=== PATIENT | female | born 1990 | race Caucasian/White ===

== ENCOUNTER 2016-05-01 14:53 | Observation (INO) ==
[2016-05-01] MEDS ORDERED: Naloxone 0.4 MG/ML INJ IVP PRN (16:59)
[2016-05-01] MEDS ORDERED: Ondansetron 4 MG/2 ML VIAL IVP PRN (16:59)
[2016-05-01] MEDS: Vancomycin 1,250 MG in D5% in Water 250 ML IVPB SCH (17:45)
[2016-05-01] MEDS: Ringers Solution, Lactated 1,000 ML IVC SCH (17:45)
[2016-05-01] MEDS: Ibuprofen 600 MG TABLET PO PRN (17:46)
[2016-05-01] MEDS ORDERED: Vancomycin 1,250 MG in D5% in Water 250 ML IVPB SCH (18:00)
[2016-05-01 19:21] LABS: BUN/Creatinine Ratio 17 (6-26); Blood Urea Nitrogen 17 mg/dL (7-20); Calcium 8.9 mg/dL (8.6-10.8); Carbon Dioxide 22 mEq/L (19-29); Chloride 101 mEq/L (98-109); Glucose 111 mg/dL (70-99); Osmolality,Calculated 284 (280-300); Potassium 3.1 mEq/L (3.5-4.5); Sodium 136 mEq/L (136-145); eGFR For African Americans > 60 (> 60); eGFR For Non-African Americans > 60 (> 60)
[2016-05-01] MEDS: Piperacillin/Tazobactam 3.375 GM in D5% in Water (Mini-Bag+) 100 ML IVPB SCH (20:08)
[2016-05-02] MEDS: Ringers Solution, Lactated 1,000 ML IVC SCH ×2 (03:12→22:55)
[2016-05-02] MEDS: Piperacillin/Tazobactam 3.375 GM in D5% in Water (Mini-Bag+) 100 ML IVPB SCH ×3 (03:23→20:06)
[2016-05-02 04:14] LABS: Basophils % 0.2 %; Eosinophils # 0.1 K/mcL (0.0-0.6); Eosinophils % 0.3 %; Hematocrit 31.7 % (35.3-44.9); Hemoglobin 10.3 g/dL (11.5-15.4); Immature Granulocytes % 1.6 % (0-4); Lymphocytes # 1.8 K/mcL (0.6-4.6); Lymphocytes % 8.8 %; Mean Corpuscular HGB Conc 32.5 g/dL (31.6-35.5); Mean Corpuscular Hemoglobin 29.7 pg (28.0-33.3); Mean Corpuscular Volume 91.4 fL (83.0-100.0); Mean Platelet Volume 10.5 fL (9.4-12.4); Monocytes # 1.8 K/mcL (0.0-1.3); Monocytes % 9.2 %; Neutrophils # 15.9 K/mcL (1.6-8.9); Platelet Count 268 K/mcL (140-400); Red Blood Count 3.47 M/mcL (3.82-4.97); Red Cell Distribution Width 13.5 % (11.5-14.5); Segmented Neutrophils % 79.9 %
[2016-05-02] MEDS: Vancomycin 1,250 MG in D5% in Water 250 ML IVPB SCH ×2 (05:54→17:29)
[2016-05-02] MEDS: Ibuprofen 600 MG TABLET PO PRN (06:02)
[2016-05-02] MEDS: Acetaminophen 325 MG TABLET PO PRN ×2 (07:30→15:59)
--- NOTE | 2016-05-02 08:36 | OB/GYN Progress Note ---
Date of Encounter: 05/02/16 Time of Encounter: 08:31 - Assessment and Plan (1) History of section, low transverse Current Visit: Yes Status: Acute admitted on unit for treatment of fever (2) Fever of unknown origin (FUO) Current Visit: Yes Status: Acute Continue IV ATB Patient to have CT scan to r/o septic pelvic thrombosis Subjective - Subjective Principal diagnosis: Status post repeat c/s on 04/03/2016 Interval history: Patient was seen in office yesterday for visit. Patient c/o fever and severe abdominal pain that started on Friday04/27/2016. Patient is no resting in bed. Temp 99.5. Patient is not tachycardic and reports feeling a litter better than yesterday. Patient is tender on left side of incision. No signs of infection noted. Discussed POC with patient. Patient denies any questions or concerns. Patient reports: appetite normal, voiding normally, pain well controlled, ambulating normally Objective - Vital Signs Latest vital signs: Vital Signs Temp Pulse Resp BP Pulse Ox 05/02/16 05:57 103.0 F H 05/02/16 03:45 98.3 F 84 14 115/75 99 05/01/16 23:50 97.6 F 71 12 112/75 99 05/01/16 20:10 99.5 F 97 12 104/72 97 05/01/16 15:20 98.8 F 101 16 117/68 97 Intake and Output 05/01/16 05/02/16 05/02/16 23:59 07:59 15:59 Intake Total 250 / 250 1900 / 1900 Output Total 300 / 300 800 / 800 Balance -50 / -50 1100 / 1100 Intake: IV Fluids 250 / 250 1100 / 1100 Lactated Ringers 1,000 ML 1000 / 1000 @ 125 mls/hr IVC .Q8H DAVID Rx#:[id number] Zosyn 3.375 GM In 100 / 100 Dextrose 5% (Minibag+) 100 ML 100 ML @ 25 mls/hr IVPB Q8H DAVID Rx#: [id number] Vancocin 1,250 MG In 250 / 250 Dextrose 5% 250 ML @ 166. 667 mls/hr IVPB Q12H DAVID Rx#:[id number] Oral 800 / 800 Output: Urine 300 / 300 800 / 800 Other: Weight 79.7 kg - I&O's I&O's: Intake & Output 04/29/16 04/30/16 05/01/16 05/02/16 23:59 23:59 23:59 23:59 Intake Total 250 / 250 1900 / 1900 Output Total 300 / 300 800 / 800 Balance -50 / -50 1100 / 1100 Weight 79.7 kg - Exam Lungs: bilateral: normal Chest: Normal S1, Normal S2 Extremities: Present: normal Abdomen: Present: normal appearance, soft, tenderness (left lower quandrant) Incision OB: Present: normal, intact - Labs Labs: Abnormal lab results WBC 19.9 K/mcL (4.3-11.1) H 05/02/16 03:30 RBC 3.47 M/mcL (3.82-4.97) L 05/02/16 03:30 Hgb 10.3 g/dL (11.5-15.4) L 05/02/16 03:30 Hct 31.7 % (35.3-44.9) L 05/02/16 03:30 Neutrophils # 15.9 K/mcL (1.6-8.9) H 05/02/16 03:30 Monocytes # 1.8 K/mcL (0.0-1.3) H 05/02/16 03:30 Potassium 3.1 mEq/L (3.5-4.5) L 05/01/16 18:57 Glucose 111 mg/dL (70-99) H 05/01/16 18:57 Consult Discharge Plan - Plan Referrals: NO,PCP [Primary Care Provider] -
[2016-05-03] MEDS: Acetaminophen 325 MG TABLET PO PRN (04:07)
[2016-05-03 04:48] LABS: Basophils # 0.1 K/mcL (0.0-0.2); Basophils % 0.4 %; Eosinophils # 0.1 K/mcL (0.0-0.6); Eosinophils % 0.5 %; Hematocrit 29.7 % (35.3-44.9); Hemoglobin 9.7 g/dL (11.5-15.4); Immature Granulocytes % 4.1 % (0-4); Lymphocytes # 2.3 K/mcL (0.6-4.6); Lymphocytes % 14.6 %; Mean Corpuscular HGB Conc 32.7 g/dL (31.6-35.5); Mean Corpuscular Hemoglobin 29.6 pg (28.0-33.3); Mean Corpuscular Volume 90.5 fL (83.0-100.0); Mean Platelet Volume 10.1 fL (9.4-12.4); Monocytes # 1.6 K/mcL (0.0-1.3); Monocytes % 10.6 %; Neutrophils # 10.8 K/mcL (1.6-8.9); Nucleated Red Blood Cells 0.1 /100 WBC (0); Platelet Count 295 K/mcL (140-400); Red Blood Count 3.28 M/mcL (3.82-4.97); Red Cell Distribution Width 13.7 % (11.5-14.5); Segmented Neutrophils % 69.8 %
[2016-05-03] MEDS: Piperacillin/Tazobactam 3.375 GM in D5% in Water (Mini-Bag+) 100 ML IVPB SCH (04:59)
[2016-05-03] MEDS: Vancomycin 1,250 MG in D5% in Water 250 ML IVPB SCH (06:00)
[2016-05-03] MEDS: Ringers Solution, Lactated 1,000 ML IVC SCH (07:13)
--- NOTE | 2016-05-03 10:17 | Discharge Summary ---
Date of Encounter: 05/03/16 Time of Encounter: 10:19 - Discharge Medications Prescriptions: Sulfamethoxazole/Trimeth DS [Bactrim Ds] 1 each PO BID 10 Days Home Medications: Multi Tablet 04/03/16 [History] Docusate [Colace] 100 mg PO BID #60 capsule 04/05/16 [Rx] Ibuprofen [Motrin] 600 mg PO Q6HR PRN #60 tablet 04/05/16 [Rx] OxyCODONE/APAP 5/325 [Percocet 5/325 MG] 1 each PO Q4HR PRN #30 tablet 04/05/16 [Rx] Vit/FA 1 each PO DAILY tablet 04/05/16 [Rx] Sulfamethoxazole/Trimeth DS [Bactrim Ds] 1 each PO BID 10 Days 05/03/16 [Rx] Allergies/Adverse Reactions: Allergies No Known Allergies Allergy (Verified 01/19/15 13:01) Data Procedures and tests throughout hospitalization: Laboratory Tests 05/01/16 05/02/16 05/03/16 18:57 03:30 04:17 WBC 19.9 H RBC 3.47 L Hgb 10.3 L Hct 31.7 L MCV 91.4 MCH 29.7 MCHC 32.5 RDW 13.5 Plt Count 268 MPV 10.5 Immature Gran % 1.6 Seg Neutrophils % 79.9 Lymphocytes % 8.8 Monocytes % 9.2 Eosinophils % 0.3 Basophils % 0.2 Neutrophils # 15.9 H Lymphocytes # 1.8 Monocytes # 1.8 H Eosinophils # 0.1 Basophils # 0.0 Nucleated RBCs/100 WBC Sodium 136 Potassium 3.1 L Chloride 101 Carbon Dioxide 22 BUN 17 Creatinine 1.00 Est GFR ( Amer) > 60 Est GFR (Non-Af Amer) > 60 BUN/Creatinine Ratio 17 Glucose 111 H Calculated Osmolality 284 Calcium 8.9 Vancomycin Trough 16.0 05/03/16 04:40 WBC 15.5 H RBC 3.28 L Hgb 9.7 L Hct 29.7 L MCV 90.5 MCH 29.6 MCHC 32.7 RDW 13.7 Plt Count 295 MPV 10.1 Immature Gran % 4.1 H Seg Neutrophils % 69.8 Lymphocytes % 14.6 Monocytes % 10.6 Eosinophils % 0.5 Basophils % 0.4 Neutrophils # 10.8 H Lymphocytes # 2.3 Monocytes # 1.6 H Eosinophils # 0.1 Basophils # 0.1 Nucleated RBCs/100 WBC 0.1 H Sodium Potassium Chloride Carbon Dioxide BUN Creatinine Est GFR ( Amer) Est GFR (Non-Af Amer) BUN/Creatinine Ratio Glucose Calculated Osmolality Calcium Vancomycin Trough Patient's urine culture from the office showed growth of Escherichia coli. Has a broad sensitivity. Is sensitive to Bactrim. Labs on day of discharge: Labs from last 24 hours 05/03/16 05/03/16 04:40 04:17 WBC 15.5 H RBC 3.28 L Hgb 9.7 L Hct 29.7 L MCV 90.5 MCH 29.6 MCHC 32.7 RDW 13.7 Plt Count 295 MPV 10.1 Immature Gran % 4.1 H Seg Neutrophils % 69.8 Lymphocytes % 14.6 Monocytes % 10.6 Eosinophils % 0.5 Basophils % 0.4 Neutrophils # 10.8 H Lymphocytes # 2.3 Monocytes # 1.6 H Eosinophils # 0.1 Basophils # 0.1 Nucleated RBCs/100 WBC 0.1 H Vancomycin Trough 16.0 Preliminary micro results at discharge 05/01/16 18:57 Blood Culture - Preliminary Peripheral Venipuncture No growth. White blood cell count decreasing appropriately. - Impressions ITS Impressions Abdomen/Pelvis CT 05/02/16 08:45 IMPRESSION: 1. uterus with endometrial canal fluid, there is no internal air to suggest endometritis. Mild asymmetric prominence of the right fallopian tube which could represent possible pyosalpinx. There is no pelvic abscess. There is no definite septic pelvic vein thrombosis though there is poor overall venous opacification on this examination. 2. Nonspecific mild hepatic periportal edema with no intrahepatic abscess or evidence of portal vein thrombosis. D/ / 05/02/2016 12:07:36 Guillermo Meyers MD / carlie Interpreting Provider: Guillermo Meyers MD Date of admission: 05/01/16 15:01 Primary care physician: PCP NO Discharging clinician: Geo Bean - Patient Status Disposition: Home, Self-Care Condition: Good Functional capacity at discharge: independent ambulation Overall status at discharge: patient is progressing back to baseline - Discharge Instructions Instructions: Urinary Tract Infection in Women (GEN) Follow Up With: NO,PCP [Primary Care Provider] - Additional Instructions: 1. Please stay well hydrated with clear fluids. 2. Use [id number] Motrin and Tylenol at the appropriate dose on the bottle for fever and pain control. 3. Please follow-up in the office next week. Call Friday morning to make an appointment. 4. If you have any complications please immediately go to the emergency department. - Diet and Activity Activity: increase activity as tolerated Diet: advance to your usual diet Hospital Course [employer] Reason for admission: other (Unknown source of fever) Discharge diagnosis: other (UTI) Hospital course: Patient presented to the hospital with the unknown origin of fever. She was complaining of left lower quadrant pain around her incision site. She was started on Vanco and Zosyn, a urinalysis and a abdominal CT were acquired. CT was unremarkable. Lab work was reviewed. Patient has had several bouts of fever while she is here. These are treated with Motrin and Tylenol. Her white blood cell count has appropriately declined from 26.6 on May 01 to 15.5 on May 03. Patient is mentating well at this time. Her urinalysis showed growth of Escherichia coli. This is sensitive to Bactrim. Patient is alert and oriented and requesting discharge at this time. I feel this is reasonable. We will discharge with by mouth Bactrim and follow-up in the office next week. Discharge instructions have been discussed with the patient. She expresses understanding. Time Attestation: Total time spent providing and/or coordinating discharge services: Time Spent: Less than 30 minutes Exam - Constitutional Vitals: Temp Pulse Resp BP Pulse Ox 98.2 F 62 19 117/69 95 05/03/16 07:45 05/03/16 07:45 05/03/16 08:15 05/03/16 07:45 05/03/16 06:00 General appearance IM: cooperative, A&O X 3, pleasant, no acute distress, answers questions appropriately - Respiratory Respiratory exam: Present: CTAB. Absent: rales, respiratory distress, rhonchi, stridor, wheezes, tachypnea - Cardiovascular Cardiovascular exam IM: Present: RRR. Absent: irregular rhythm - GI/Abdominal GI/Abdominal exam IM: normal bowel sounds, soft Incision: normal, dry, intact, other (Well-healed with no signs of cellulitis.) - Uterine Tone: Firm - Extremities Exam Extremities exam IM: Present: full ROM, normal capillary refill, normal inspection, radial pulses palpable and symetrical. Absent: calf tenderness, joint swelling, pedal edema - Neurological Exam Neurological exam: alert, oriented X3 - Skin Additional comments: No rashes noted.
[2016-05-03 11:25] VITALS: BP 122/90
[2016-05-03] MEDS ORDERED: Aminoglycoside Consult 1 EACH MC ONE (12:00)
== END 2016-05-03 12:01 | disposition home or self-care (01) ==
LOC: 1NENUOBS
PROVIDERS: ADMIT Obstetrics & Gynecology; ATTEND Obstetrics & Gynecology